=== PATIENT | male | born 1930 | race Caucasian/White ===

== ENCOUNTER 2016-12-17 09:59 | Emergency (ER) | payer MEDICARE, MEDICAID ==
[~2016-12-17] VITALS: Ht 177.8 cm; Wt 93.1 kg
[~2016-12-17 09:59] MED LIST: ASPI81TA2 PO; HYDR-2540 PO; INSU100I21 SQ; SILD50TA PO; VALS160T25 PO
[2016-12-17 10:02] VITALS: Ht 177.8 cm; Wt 93.1 kg
--- OUTSIDE RECORDS SUMMARY | 2016-12-17 10:04 | XMS REPORT | Summary of Care ---
Author Author Aydin Ly M.D. Organization Unknown Address [address] [place] [address] [place] [address] Phone Unavailable Care Team Providers Care Packer Denture Name Role Phone Aydin Ly M.D. 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 Hematuria, gross (599.71, R31.0) Status: Active Urinary tract infection (599.0, N39.0) Status: Active History of Congestion and hemorrhage of prostate (602.1, N42.1) Status: Resolved Medications Name Dates Details Lantus 100 UNIT/ML Subcutaneous Solution * Start 13-Jun-2015 Active Aspirin 81 MG TABS * Refills: 0 * Start 13-Jun-2015 Active Diovan 160 MG Oral Tablet * Refills: 0 * Start 13-Jun-2015 Active Tylenol PM Extra Strength 500-25 MG Oral Tablet * Refills: 0 * Start 13-Jun-2015 Active Viagra 100 MG Oral Tablet * Refills: 0 * Start 13-Jun-2015 Active Allergies and Adverse Reactions Name Dates Details Cozaar (Allergy) Status: Active erythromycin (Allergy) Status: Active HMG-CoA-R Inhibitors (Allergy) Status: Active Losartan Potassium TABS (Allergy) Status: Active Statins (Allergy) Status: Active Past Medical History Name Dates Details History of atrial flutter (V12.59, Z86.79) Status: Resolved History of Benign prostatic hyperplasia (600.00, N40.0) Status: Resolved History of Congestion and hemorrhage of prostate (602.1, N42.1) Status: Resolved History of diabetes mellitus (V12.29, Z86.39) Status: Resolved History of Erectile dysfunction (607.84, N52.9) Status: Resolved History of hematuria (V13.09, Z87.448) Status: Resolved History of hyperlipidemia (V12.29, Z86.39) Status: Resolved History of hypertension (V12.59, Z86.79) Status: Resolved History of pericarditis (V12.59, Z86.79) Status: Resolved 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, 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 Procedures Procedure Dates Details History of Transureth Resect Prostate (TURP) Complete, Incl Control Of Postop Bleeding History of Pacemaker Placement History of Colonoscopy URINE CULTURE [id number] Ordered: 21-Jun-2016 Immunization Name Dates Details Immunizations not documented Family History Name Dates Details Family history of diabetes mellitus (V18.0, Z83.3) Comments: Family History Status: Active Family history of hypertension (V17.49, Z82.49) Comments: Family History Status: Active Family history of myocardial infarction (V17.3, Z82.49) Comments: Family History Status: Active Name Dates Details Family history of Status: Active Family history of malignant neoplasm of prostate (V16.42, Z80.42) Status: Active Social History Name Dates Details - Status: Name Dates Details Never smoker Vital Signs Date Test Result Details 21-Jun-2016 09:16 BP Systolic 141 mm[Hg] Status: Comments: Location: ; Position: BP Diastolic 69 mm[Hg] Status: Comments: Location: ; Position: Heart Rate 77 /min Status: Comments: Location: ; Weight 200 lb Status: Body Mass Index Calculated 28.7 kg/m2 Status: Body Surface Area Calculated 2.09 m2 Status: Results Date Description Value Details Results not documented Plan of Care Name Dates Details Planned Observations Planned Goals not documented Planned Encounters Appointment; Provider: Aydin Ly M.D. On 19-Jul-2016 08:30 Interventions Provided Labs/Procedures/Imaging* URINE CULTURE [id number]; To be Done: 21 Jun 2016 Instructions Name Dates Details Instructions not documented Encounters Appointment; Aydin Ly M.D. Encounter Diagnosis: Problem not documented On 08-Nov-2015 13:30 Appointment; Aydin Ly M.D. Encounter Diagnosis: Problem not documented On 06-Oct-2015 09:00 Appointment; Aydin Ly M.D. Encounter Diagnosis: Problem not documented On 28-Jul-2015 08:30 Appointment; Aydin Ly M.D. Encounter Diagnosis: Problem not documented On 28-Jun-2015 09:30 Appointment; Aydin Ly M.D. Encounter Diagnosis: Problem not documented On 23-Jun-2015 13:30
--- OUTSIDE RECORDS SUMMARY | 2016-12-17 10:04 | XMS REPORT | Continuity of Care Document ---
Author Author [facility] Organization [facility] Address Unknown Phone Unavailable Support Name Relationship Address Phone ISHAN LEO MD Caregiver [address] [place] [address] [address] [place] [address] Unavailable ISHAN LEO MD Caregiver [address] [place] [address] [address] [place] [address] Unavailable REBEKAH RTUJILLO DO Caregiver [address] [facility] [address] Unavailable MAURISIO EVERETT MD Caregiver [address] [facility] [address] [place] [address] Unavailable TANISHA ROBERTS Next Of Kin [address] [phone] Insurance Providers Guarantor Terell Lopez Address [address] [place] [address] Email DENIED/NO TO PT [place] Payer Medicaid Policy Number [id number] Subscriber's Name Terell Lopez Relationship 18 Self Effective Date 15 Expiration Date 15 Payer Medicareadvantra Ppo Policy Number [id number] Subscriber's Name Terell Lopez Relationship 18 Self Group Number [id number] Advance Directives Directive Response Recorded Date/Time Advanced Directives Type None 12/11/15 9:30am Dr Riggins Resuscitation Status Do Not Resuscitate 12/11/15 8:07pm Resuscitation Documents on File Yes 12/11/15 12:55pm DPOA for Healthcare Only Yes 12/11/15 12:55pm Chief Complaint and Reason for Visit Chief Complaint CHEST PAIN Reason for Visit Hematuria History of atrial flutter History of pericarditis Hyperlipemia, mixed Hypertension UTI UTI Urinary bladder excision Status post biventricular cardiac pacemaker insertion Problems Active Problems Medical Problem Onset Date Status Acute urinary retention Unknown Acute BPH (benign prostatic hyperplasia) Unknown Acute Bradyarrhythmia Unknown Resolved Cardiac asystole Unknown Resolved Chest pain Unknown Acute Congestion or hemorrhage of prostate Unknown Acute Diabetes mellitus Unknown Chronic Hematuria Unknown Acute Hematuria Unknown Acute History of atrial flutter Unknown Resolved History of pericarditis Unknown Resolved Hyperlipemia, mixed Unknown Chronic Hypertension Unknown Chronic Recurrent and persistent hematuria Unknown Acute UTI Unknown Acute UTI Unknown Acute Urinary bladder excision Unknown Acute Surgical Problem Onset Date Status Status post biventricular cardiac pacemaker insertion Unknown Acute Medications Current Home Medications Medication Dose Units Route Directions Days Qty Instructions Start Date Aspirin 81 Mg Tab.chew 81 Mg Oral Daily 12/05/15 Hydrochlorothiazide 50 Mg Tablet 50 Mg Oral Daily 12/05/15 Hydrocodone/Acetaminophen (Sunshine 5-325 Tablet) 1 Each Tablet 1-2 Tab Oral Every 6 Hours as needed for Pain 7 Days 12/13/15 Insulin Detemir (Levemir Flextouch) 100 Unit/1 Ml Insuln.pen 10-15 Unit Sub- Q Bedtime 12/05/15 Minocycline Hcl (Minocin) 100 Mg Capsule 100 Mg Oral Twice A Day 14 Days 12/13/15 Valsartan 160 Mg Tablet 160 Mg Oral Daily 30 Days 12/13/15 Past Home Medications Medication Directions Ordered Status Hydrochlorothiazide 12.5 Mg Tablet, 10/08/10 Discontinued Valsartan (Diovan) 160 Mg Tablet, 160 Mg Oral Daily 03/13/11 Discontinued Valsartan (Diovan) 40 Mg Tablet, 10/08/10 Discontinued Social History Social History Problem Response Recorded Date/Time Onset Date Status Hx Substance Use No 12/11/2015 9:30am Not Applicable Not Applicable Hx Alcohol Use No 12/11/2015 9:30am Not Applicable Not Applicable Has the pt used tobacco in the last 12 months No 06/20/2015 6:32am Not Applicable Not Applicable Tobacco Usage none 12/11/2015 12:23pm Not Applicable Not Applicable Query Response Start Date Stop Date Smoking Status Never smoker Hospital Discharge Instructions Instructions: Care Instructions: Reason for Hospitalization: Chest pain, asystole, insertion PPM I was in the hospital because (patient own words): "I was feeling dizzy, queezy , was sweating and had chest pain" Discharge Diet: Resume regular diet Discharge Activity: NO lifting arm above the shoulder x 4 weeks, no driving x 4 weeks. Wear the sling at night x 4 weeks and during the day if you think you might forget not to lift arm up or use arm. Follow Up Appointments: FOLLOW UP WITH FOR INCISION CHECK Friday12/20/15 @ 2:[address] FOLLOW UP WITH DR. LEO FOR PACEMAKER CHECK [facility] 01/24/16 @ 10:10 Pending Lab / Results: No Pending Lab Wound/Incision Care: DO NOT RUB PACEMAKER INCISION SITE, KEEP CLEAN AND DRY. WHEN SHOWERING JUST LET THE WATER RUN ACROSS THE INCISION, THEN PAT DRY, THE STERISTRIPS WILL FALL OFF ON THEIR OWN. TAKE THE MINOCYCLIN FOR 7 DAYS. Notify Physician If: ANY SIGNS OR SYMPTOMS OF INFECTION AT THE PACEMAKER SITE: REDNESS SWELLING, DRAINAGE OR INCREASED PAIN. Condition at time of discharge: Good Plan of Care Discharge Date 12/13/15 11:20am Disposition 01 DISCHARGED HOME, SELF-CARE Instructions/Education Provided [facility]iran Pacemaker Implantation Prescriptions See Medication Section Care Plan and Goals See Discharge Instructions Section Functional Status Query Response Date Recorded Mobility Status Ambulatory December 13, 2015 10:47am Assistive Devices None December 13, 2015 10:47am Activity Limitations Fatigue Dizziness December 13, 2015 10:47am Feeding Ability Independent December 13, 2015 10:47am Toileting Ability Independent December 13, 2015 10:47am Grooming Ability Independent December 13, 2015 10:47am Dressing Ability Independent December 13, 2015 10:47am Driving Ability Independent December 13, 2015 10:47am Housework Ability Independent December 13, 2015 10:47am Meal Preparation Ability Independent December 13, 2015 10:47am Stair Climbing Ability Independent December 13, 2015 10:47am Ability to complete ADL's impeded by No change December 13, 2015 10:47am Cognitive/Perceptual Impairments Impaired hearing December 13, 2015 10:47am Allergies, Adverse Reactions, Alerts Allergen Type Severity Reaction Status Last Updated losartan potassium Allergy Unknown ARTHRALGIA, WEAKNESS, FATIGUE Active Sqtrfxr-Xrm-Ilv Reductase Inhibitor Allergy Unknown SEVERE MYALGIA Active 12/11/15 Erythromycin base Allergy Unknown N/V Active 12/11/15 Metoprolol Allergy Severe life threatening Active 12/11/15 Tamsulosin Adverse Reaction Unknown SYNCOPE Active 12/11/15 Immunizations Query Response on File Recorded Date/Time Hx Influenza Vaccination Y 06/0112/11/15 1:08pm Hx Pneumococcal Vaccination Yes 12/11/15 1:08pm Hx Influenza Vaccination Y 06/0112/11/15 1:08pm Influenza Vaccine Hx Fall 201412/12/15 11:45am Vital Signs Acute Vital Signs Vital Response Date/Time Temperature (Fahrenheit) 98.4 deg F (96.8 - 99.1) 12/13/2015 8:00am Temperature (Calculated Celsius) 36.98181 degrees C (36.0 - 37.3) 12/13/2015 8:00am Temperature Source Oral 12/06/2015 8:01am Pulse Rate (adult) 75 bpm (60 - 100) 12/13/2015 10:00am Respiratory Rate 23 breaths/min (10 - 20) 12/13/2015 10:00am O2 Sat by Pulse Oximetry 95 % (90 - 100) 12/13/2015 10:00am Oxygen Delivery Method Nasal Cannula 12/11/2015 7:39pm Oxygen Delivery Method Room Air 12/13/2015 8:00am Oxygen Flow Rate 2.00 L/min 12/12/2015 2:08pm Blood Pressure 107/54 mm Hg 12/13/2015 10:00am Blood Pressure Source Automatic Cuff 12/13/2015 8:00am Height (Feet) 5 feet 12/13/2015 10:28am Height (Inches) 11.00 inches 12/13/2015 10:28am Weight (Kilograms) 87.200 kg 12/12/2015 11:54am Body Mass Index (BMI) 27.2 12/11/2015 12:54pm Results Laboratory Results Test Name Result Units Flags Reference Collection Date/Time Result Date/ Time Comments Urine Collection Type VOIDED-NOT CC-MIDSTR 12/05/2015 1:27pm 2015 1:59pm Urine Color RED YELLOW 12/05/2015 1:pm 12/05/2015 1:59pm Urine Turbidity BLOODY CLEAR 12/05/2015 1:27pm 12/05/2015 1:59pm Urine Specific [place] 1.020 1.015-1.025 12/05/2015 1:pm 2015 1:59pm Urine pH 8.0 5.0-8.0 12/05/2015 1:pm 12/05/2015 1:59pm Urine Leukocyte Esterase NEGATIVE NEGATIVE 12/05/2015 1:pm 2015 1:59pm Urine Nitrite POSITIVE A NEGATIVE 12/05/2015 1:pm 12/05/2015 1:59pm Urine Protein 3+ A NEGATIVE 12/05/2015 1:27pm 12/05/2015 1:59pm Urine Glucose (UA) TRACE A NEGATIVE 12/05/2015 1:pm 12/05/2015 1: 59pm Urine Ketones NEGATIVE NEGATIVE 12/05/2015 1:27pm 12/05/2015 1:59pm Urine Urobilinogen 0.2 EU/DL NORMAL 12/05/2015 1:27pm 12/05/2015 1: 59pm Urine Bilirubin NEGATIVE NEGATIVE 12/05/2015 1:pm 12/05/2015 1: 59pm Urine Blood 3+ A NEGATIVE 12/05/2015 1:pm 12/05/2015 1:59pm Urine WBC NONE SEEN /HPF 0-5 12/05/2015 1:pm 12/05/2015 2:00pm Urine RBC TNTC /HPF 0-3 12/05/2015 1:pm 12/05/2015 2:00pm Urine Squamous Epithelial Cells NONE SEEN 12/05/2015 1:pm 2015 2:00pm Urine Bacteria 2+ H NEGATIVE 12/05/2015 1:pm 12/05/2015 2:00pm Urine Culture Indicated CULT REFLEXED &SETUP 12/05/2015 1:pm 2:00pm White Blood Count 10.2 T/MM3 4.5-11.0 12/13/2015 4:57am 12/13/2015 5: 28am Red Blood Count 5.07 M/MM3 4.50-5.90 12/13/2015 4:57am 12/13/2015 5: 28am Hemoglobin 14.8 GM/DL 13.5-17.5 12/13/2015 4:57am 12/13/2015 5:28am Hematocrit 44.1 % 41-53 12/13/2015 4:57am 12/13/2015 5:28am Mean Corpuscular Volume 87.0 UM3 80-100 12/13/2015 4:57am 12/13/2015 5: 28am Mean Corpuscular Hemoglobin 29.2 UUG 26-34 12/13/2015 4:57am 2015 5:28am Mean Corpuscular Hemoglobin Concent 33.6 GM/DL 31-37 12/13/2015 4:57am 12/13/2015 5:28am RDW Standard Deviation 42.2 FL 36.9-50.2 12/13/2015 4:57am 12/13/2015 5 :28am Platelet Count 223 T/MM3 130-400 12/13/2015 4:57am 12/13/2015 5:28am Mean Platelet Volume 10.6 UM3 9.4-12.4 12/13/2015 4:57am 12/13/2015 5: 28am Neutrophils (%) (Auto) 83.1 % H 33-66 12/11/2015 10:0912/11/2015 10: 17am Lymphocytes (%) (Auto) 9.4 % L 23-45 12/11/2015 10:12/11/2015 10: 17am Monocytes (%) (Auto) 6.1 % 0-9.0 12/11/2015 10:0912/11/2015 10:17am Eosinophils (%) (Auto) 0.7 % 0-4 12/11/2015 10:12/11/2015 10:17am Basophils (%) (Auto) 0.5 % 0-2 12/11/2015 10:12/11/2015 10:17am Immature Granulocyte % (Auto) 0.2 % 0.0-0.5 12/11/2015 10:2015 10:17am Absolute Neutrophils (auto) 8.1 T/MM3 H 1.8-7.7 12/11/2015 10:12/10 10:17am Absolute Lymphocytes (auto) 0.9 T/MM3 L 1-4.8 12/11/2015 10:2015 10:17am Absolute Monocytes (auto) 0.6 T/MM3 0-0.8 12/11/2015 10:2015 10:17am Absolute Eosinophils (auto) 0.1 T/MM3 0-0.5 12/11/2015 10:2015 10:17am Absolute Basophils (auto) 0.1 T/MM3 0-0.2 12/11/2015 10:2015 10:17am Absolute Immature Granulocyte (auto 0.02 T/MM3 0.00-0.03 12/11/2015 10: 12/11/2015 10:17am Prothromb Time International Ratio 0.99 0.81-1.09 12/11/2015 10:12/11/2015 10:23am THERAPUTIC RANGE=2.00-3.00 FOR ANTI-THROMBOSIS THERAPUTIC RANGE=2.50-3.50 FOR IMPLANTED VALVE Activated Partial Thromboplast Time 29.4 SEC 24-36 12/11/2015 10:09am 12/11/2015 10:23am Icterus Index < 2 0-7 12/13/2015 4:57am 12/13/2015 5:54am Chemistry Specimen Hemolysis < 15 0-25 12/13/2015 4:57am 12/13/2015 5 :55am 0-25: Specimen Exhibited No Hemolysis. Turbidity < 20 0-20 12/13/2015 4:57am 12/13/2015 5:54am Sodium Level 140 MEQ/L 134-144 12/13/2015 4:57am 12/13/2015 5:54am Potassium Level 3.7 MEQ/L 3.6-5 12/13/2015 4:57am 12/13/2015 5:54am Chloride Level 100 MEQ/L 98-107 12/13/2015 4:57am 12/13/2015 5:54am Carbon Dioxide Level 32 MEQ/L H 22-30 12/13/2015 4:57am 12/13/2015 5: 54am Anion Gap 8 MEQ/L 5-15 12/13/2015 4:57am 12/13/2015 5:54am Blood Urea Nitrogen 21.0 MG/DL H 9-20 12/13/2015 4:57am 12/13/2015 5: 54am Creatinine 1.0 MG/DL 0.8-1.5 12/13/2015 4:57am 12/13/2015 5:54am BUN/Creatinine Ratio 21 RATIO 6-26 12/13/2015 4:57am 12/13/2015 5:54am Glomerular Filtration Rate Calc 72 12/13/2015 4:57am 12/13/2015 5: 54am Glucose Level 106 MG/DL 75-110 12/13/2015 4:57am 12/13/2015 5:54am Calculated Osmolality 272 MOSM/KG 261-280 12/13/2015 4:57am 12/13/2015 5:54am Calcium Level 9.3 MG/DL 8.4-10.2 12/13/2015 4:57am 12/13/2015 5:54am Total Bilirubin 0.60 MG/DL 0.20-1.30 12/11/2015 10:0912/11/2015 10: 26am Alkaline Phosphatase 62 U/L 38-126 12/11/2015 10:0912/11/2015 10: 26am Total Protein 6.8 G/DL 6.3-8.2 12/11/2015 10:09am 12/11/2015 10:26am Albumin 4.1 G/DL 3.5-5.0 12/11/2015 10:0912/11/2015 10:26am Globulin 2.7 G/DL 2.4-3.6 12/11/2015 10:09am 12/11/2015 10:26am Albumin/Globulin Ratio 1.5 RATIO 1.1-2.2 12/11/2015 10:0912/11/2015 10:26am Aspartate Amino Transf (AST/SGOT) 30 U/L 17-59 12/11/2015 10:09am 12/10 10:26am Alanine Aminotransferase (ALT/SGPT) 27 U/L 21-72 12/11/2015 10:09am 10:26am Cholesterol Level 209 MG/DL H 132-199 12/12/2015 4:52am 12/12/2015 5: 30am Triglycerides Level 162 MG/DL H 40-160 12/12/2015 4:52am 12/12/2015 5: 30am HDL Cholesterol Direct 50 MG/DL 40-60 12/12/2015 4:52am 12/12/2015 5: 30am LDL Cholesterol, Calculated 126.6 66-159 12/12/2015 4:52am 2015 5:30am VLDL Cholesterol 32.4 MG/DL H 0-28 12/12/2015 4:52am 12/12/2015 5:30am Cholesterol/HDL Ratio 4.2 RATIO 0-5.0 12/12/2015 4:52am 12/12/2015 5: 30am Troponin I 0.031 ng/ml D 0-0.12 12/13/2015 4:57am 12/13/2015 5:56am Troponin values with a difference of 55% increase from orginal troponin value represent a true biological DELTA value. (%increase Calc=Orginal Troponin value, divided by subsequent Troponin value, multiplied by 100) Magnesium Level 2.1 MG/DL 1.6-2.3 12/13/2015 4:57am 12/13/2015 5:54am Thyroid Stimulating Hormone (TSH) 4.20 MIU/L 0.47-4.68 12/11/2015 10: 22am 12/11/2015 3:55pm Glucometer 105 mg/dL 75-110 12/13/2015 6:03am 12/13/2015 6:06am Microbiology Results Procedure Source Organism/Result Collection Date/Time Result Date/Time Result Status Urine Culture Urine, Voided-Not Cc-Midstream GRAM NEGATIVE PRESTON 12/05/2015 2 :00pm 12/07/2015 9:20am Final GRAM POSITIVE ORGANISM 12/05/2015 2:00pm 12/07/2015 9:20am Final Name: TERELL LOPEZ Unit #: [id number] : 1930 Sex: M DISCHARGE SUMMARY Admit Date: 12/12/15 Report #: [id number] [facility] MARK DE LA CRUZ APRN 12/13/15 1026: General Date Date DATE: 12/13/15 TIME: 10:20 Attending Physician Ishan Leo MD Admitting Physician Ishan Leo MD Consulting Physician Admitting Diagnosis 1. Chest Pain Discharge Diagnosis Bradyarrhythmia, asystole, S/P PPM insertion Laboratory Laboratory Tests Test 12/12/15 20:27 12/12/15 23:12 12/13/15 04:57 12/13/15 06:03 Glucometer 107mg/dL 115mg/dL 105mg/dL White Blood Count 10.2T/MM3 Red Blood Count 5.07M/MM3 Hemoglobin 14.8GM/DL Hematocrit 44.1% Mean Corpuscular Volume 87.0UM3 Mean Corpuscular Hemoglobin 29.2UUG Mean Corpuscular Hemoglobin Concent 33.6GM/DL RDW Standard Deviation 42.2FL Platelet Count 223T/MM3 Mean Platelet Volume 10.6UM3 Turbidity < 20 Sodium Level 140MEQ/L Potassium Level 3.7MEQ/L Chloride Level 100MEQ/L Carbon Dioxide Level 32MEQ/L Anion Gap 8MEQ/L Blood Urea Nitrogen 21.0MG/DL Creatinine 1.0MG/DL Glomerular Filtration Rate Calc 72 BUN/Creatinine Ratio 21RATIO Glucose Level 106MG/DL Calculated Osmolality 272MOSM/KG Calcium Level 9.3MG/DL Magnesium Level 2.1MG/DL Icterus Index < 2 Troponin I 0.031ng/ml Chemistry Specimen Hemolysis < 15 Radiology 12/13/15 Chest xray PA and Lateral No pneumothorax, pacemaker leads in place History of Present Illness Terell Lopez is an 84 y/o male who presented to the ED via EMS c/o chest pain and pressure, and epigastric discomfort, dizziness and SOA and a feeling like he was about to pass out that started this morning as he was starting his day, making coffee. Patient reports hw has a hx of pericarditis years ago that started with similiar sx but the sx he experienced today were worse. Patient is known to our service, he was last seen in the office in 12/2009 after full cardiac evaluation with MPI, Echo, LEAD, clinic records are reviewed and obtained to place in chart. Past cardiac significant hx included atrial flutter, hyperlipidemia, HTN, Also hx of DM, acute renal failure, enlarged pericardia, pericarditis as mentioned in the distant past. Patient is examined in ED room #2, he is alert,oriented x3, he is a good historian, his is at the bedside. in no distress, denies chest pain or pressure, denies diaphoresis or dizziness. Labs are reviewed, CBC, CMP results are all normal, magnesium is 2.0, TSH is pending. EKG is SR with no significant ST changes. Patient has significant risk factors for CAD: diabetes, hyperlipidemia HTN, age. Will admit for OBS overnight, will monitor continuous telemetry, serial EKGs and troponin levels. Echocardiogram ordered to further assess for pericardial effusion due to hx. Plan discussed with patient who is agreeable to this course of action. Objective Vital Signs Vital signs Vital Signs 12/12/15 12/13/15 12/13/15 12/13/15 23:00 00:00 00:00 01:00 Temp 97.6 Pulse 60 59 59 80 Resp 12 10 31 B/P 110/54 124/60 Pulse Ox 96 94 O2 Delivery Room Air Room Air Room Air 12/13/15 12/13/15 12/13/15 12/13/15 01:05 02:00 04:00 04:02 Temp 97.9 Pulse 60 60 60 60 Resp 13 11 13 B/P 139/62 127/57 Pulse Ox 97 93 93 O2 Delivery Room Air Room Air Room Air 12/13/15 12/13/15 12/13/15 05:00 08:00 08:00 Temp 98.4 Pulse 59 61 60 Resp 20 22 B/P 130/58 121/58 Pulse Ox 99 98 O2 Delivery Room Air Room Air Height (Feet): 5 Height (Inches): 11.00 Weight (Kilograms): 87.200 Cardiovascular (Brief) regular rate, regular rhythm, NOT FOUND: carotid bruits, click, gallop, murmur, pedal edema, peripheral edema, rub Laboratory Laboratory Laboratory Tests 12/13/15 04:57 [Embedded Image Not Available] Laboratory Tests 12/13/15 04:57 [Embedded Image Not Available] Hospital Course Terell Lopez is an 84 y/o male who presented to the ED via EMS 12/11/15 c/o chest pain and pressure, and epigastric discomfort, dizziness and SOA and a feeling like he was about to pass out that started this morning as he was starting his day, making coffee. Patient reports hw has a hx of pericarditis years ago that started with similiar sx but the sx he experienced today were worse. Patient is known to our service, he was last seen in the office in 12/17 after full cardiac evaluation with MPI, Echo, LEAD, clinic records are reviewed and obtained to place in chart. Past cardiac significant hx included atrial flutter, hyperlipidemia, HTN, Also hx of DM, acute renal failure, enlarged pericardia, pericarditis as mentioned in the distant past. Patient is examined in ED room #2, he is alert,oriented x3, he is a good historian, his is at the bedside. in no distress, denies chest pain or pressure, denies diaphoresis or dizziness. Labs are reviewed, CBC, CMP results are all normal, magnesium is 2.0, TSH is pending. EKG is SR with no significant ST changes. Patient has significant risk factors for CAD: diabetes, hyperlipidemia HTN, age. Will admit for OBS overnight, will monitor continuous telemetry, serial EKGs and troponin levels. Echocardiogram ordered to further assess for pericardial effusion due to hx. Plan discussed with patient who is agreeable to this course of action. 12/12/15 Received call from nursing in the early am reporting patient had 2 episodes of asystole, 20 seconds, 30 seconds, ordered external pacing if patient is agreeable, morphine for discomfort if pacing is necessary, call Dr. Leo if pacing necessary. Patient had more episodes of asystole with external pacing difficulty in capturing, Dr Leo was notified. patient recieved a pacemaker early this am. 12/13/15 S/P PPM insertion Patient ambulated in halls of ICU without difficultyl. PPM insertion incision intact with steristrips C&D. no redness, swelling or drainage Education regarding PPM post care explained, wear sling x 4 weeks at night, during the day if patient thinks he may forget not to raise arm above his shoulder. rationale explained. EKG and telemetry reveal artificial atrial paced rhythm. Patient to be discharge to home with return office visits scheduled as noted in dismissal instructions. After examining the patient I agree with the above assessment. I am involved in the formulation of the patient's plan of care. Pain appears noncardiac. Problems: (1) Cardiac asystole Status: Resolved Assessment & Plan: Received call from nursing in the early am reporting patient had 2 episodes of asystole, 20 seconds, 30 seconds, ordered external pacing if patient is agreeable, morphine for discomfort if pacing is necessary, call Dr. Leo if pacing necessary. Patient had more episodes of asystole with external pacing difficulty in capturing, Dr Leo was notified. patient recieved a pacemaker early this am. (2) Bradyarrhythmia Status: Resolved (3) Chest pain Status: Acute Assessment & Plan: Patient has significant risk factors for CAD: diabetes, hyperlipidemia HTN, age. Will admit for OBS overnight, will monitor continuous telemetry, serial EKGs and troponin levels. Echocardiogram ordered to further assess for pericardial effusion due to hx. Plan discussed with patient who is agreeable to this course of action. (4) Hypertension Status: Chronic Assessment & Plan: Will observe, follow serial troponins and EKGs, consider HC if indicated,however patient states he will not have a heart catheter done. Lovenox for anticoagulation. (5) Hyperlipemia, mixed Status: Chronic (6) History of atrial flutter Status: Resolved (7) History of pericarditis Status: Resolved (8) Diabetes mellitus Status: Chronic Code Status Do Not Resuscitate Home Meds Active Scripts Hydrocodone/Acetaminophen (Sunshine 5-325 Tablet)1 Each Tablet1-2 Tab PO Q6H PRN PAIN 7 Days Prov:MILINDMARK SARAVIA TITLE EXAMINER 12/13/15 Valsartan 160 Mg [id number] Mg PO DAILY 30 Days Prov:MARK DE LA CRUZ TITLE EXAMINER 12/13/15 Minocycline HCl (Minocin)100 Mg [id number] Mg PO BID 14 Days Prov:MARK DE LA CRUZ TITLE EXAMINER 12/13/15 Reported Medications Insulin Detemir (Levemir Flextouch)100 Unit/1 Ml Insuln.ced56-43 Unit SQ HS 12/05/15 Aspirin 81 Mg Tab.chew81 Mg PO DAILY 12/05/15 Hydrochlorothiazide 50 Mg Rstefu82 Mg PO DAILY 12/05/15 Discharge Disposition good Copies To 1: ISHAN LEO MD Copies To 2: MAURISIO EVERETT MD, HOSSEIN MD 12/13/15 1528: Hospital Course After examining the patient I agree with the above assessment. I am involved in the formulation of the patient's plan of care. Pain appears noncardiac. Problems: Home Meds Active Scripts Hydrocodone/Acetaminophen (Sunshine 5-325 Tablet)1 Each Tablet1-2 Tab PO Q6H PRN PAIN 7 Days Prov:DOROTHYMARK TITLE EXAMINER 12/13/15 Valsartan 160 Mg Ywlakt624 Mg PO DAILY 30 Days Prov:MILINDMARK SARAVIA Davy TITLE EXAMINER 12/13/15 Minocycline HCl (Minocin)100 Mg Qbtulnh834 Mg PO BID 14 Days Prov:MILINDMARK SARAVIA TITLE EXAMINER 12/13/15 Reported Medications Insulin Detemir (Levemir Flextouch)100 Unit/1 Ml Insuln.mgf11-83 Unit SQ HS 12/05/15 Aspirin 81 Mg Tab.chew81 Mg PO DAILY 12/05/15 Hydrochlorothiazide 50 Mg Sbrviq79 Mg PO DAILY 12/05/15 Copies To 1: ISHAN LEO MD Copies To 2: MAURISIO EVERETT MD, CARMEN G APRN Dec 13, 2015 10:26 ISHAN LEO MD Dec 13, 2015 15:28 Procedures Procedure Status Date Provider(s) CYSTOSCOPY REMOVAL OF CLOTS Completed 12/05/15 RAYSA DONALDSON MD METABOLIC PANEL TOTAL CA Completed 12/05/15 URINALYSIS AUTO W/SCOPE Completed 12/05/15 REAGENT STRIP/BLOOD GLUCOSE Completed 12/05/15 REAGENT STRIP/BLOOD GLUCOSE Completed 12/05/15 REAGENT STRIP/BLOOD GLUCOSE Completed 12/05/15 COMPLETE CBC W/AUTO DIFF WBC Completed 12/05/15 PROTHROMBIN TIME Completed 12/05/15 URINE CULTURE/COLONY COUNT Completed 12/05/15 EMERGENCY DEPT VISIT Completed 12/05/15 [id number] ITEM OR SERVICE Completed 12/05/15 [id number] ITEM OR SERVICE Completed 12/05/15 [id number] ITEM OR SERVICE Completed 12/05/15 [id number] ITEM OR SERVICE Completed 12/05/15 [id number] ITEM OR SERVICE Completed 12/05/15 [id number] ITEM OR SERVICE Completed 12/05/15 [id number]"INJECTION, INSULIN, PER 5 UNITS" Completed 12/05/15 [id number]"INJECTION, LEVOFLOXACIN, 250 MG" Completed 12/05/15 [id number]"INFUSION, NORMAL SALINE SOLUTION , 1000 CC" Completed 12/05/15 [id number]% DEXTROSE/WATER (500 ML=1 UNIT) Completed 12/05/15 [id number]"RINGERS LACTATE INFUSION, UP TO 1000 CC" Completed 12/05/15 [id number]"RINGERS LACTATE INFUSION, UP TO 1000 CC" Completed 12/05/15 Encounters Encounter Location Arrival/Admit Date Discharge/Depart Date Attending Provider Discharged Inpatient [facility] 12/12/15 12:55pm 12/13/15 11: 20am IHSAN LEO MD Departed [facility] 12/05/15 4:03pm 12/06/15 11 :05am RAYSA DONALDSON MD Recent Diagnosis Hematuria History of atrial flutter History of pericarditis Hyperlipemia, mixed Hypertension UTI UTI Urinary bladder excision
--- OUTSIDE RECORDS SUMMARY | 2016-12-17 10:05 | XMS REPORT | Continuity of Care Document ---
Author Author [facility] Organization [facility] Address Unknown Phone Unavailable Support Name Relationship Address Phone POWER LEO MD Caregiver [address] [place] [address] [address] [place] [address] Unavailable POWER LEO MD Caregiver [address] [facility] [address] [place] [address] Unavailable MAURISIO EVERETT MD Caregiver [address] [facility] [address] [place] [address] Unavailable RAHEEM DORADO MD Caregiver [address] [facility] [place] [address] Unavailable TAMIKA ROBERTS Next Of Kin [address] [place] [id number] Insurance Providers Guarantor Terell Lopez Address [address] [place] [address] Email DENIED/NO TO PT [place] Payer Medicaid Policy Number [id number] Subscriber's Name Terell Lopez Relationship 18 Self Effective Date 16 Expiration Date 16 Payer Medicare[employer]ra Ppo Policy Number [id number] Subscriber's Name Terell Lopez Relationship 18 Self Group Number [id number] Advance Directives Directive Response Recorded Date/Time Ordered Resuscitation Status Full Code, unverified 03/07/16 5:10am Resuscitation Documents on File Yes 03/07/16 5:57am DPOA for Healthcare Only Y Tamika, daughter 03/07/16 5:57am Living Will Yes 03/07/16 5:57am Advanced Directive or Resuscitation Comments Pt wishes to be a DNR. 03/07/16 5:57am Problems Active Problems Medical Problem Onset Date Status Acute urinary retention Unknown Acute BPH (benign prostatic hyperplasia) Unknown Acute Bradyarrhythmia Unknown Resolved Cardiac asystole Unknown Resolved Congestion or hemorrhage of prostate Unknown Acute Diabetes mellitus Unknown Chronic Hematuria Unknown Acute Hematuria Unknown Acute History of atrial flutter Unknown Resolved History of pericarditis Unknown Resolved Hyperlipemia, mixed Unknown Chronic Hypertension Unknown Chronic Precordial chest pain Unknown Acute Recurrent and persistent hematuria Unknown Acute UTI Unknown Acute UTI Unknown Acute Urinary bladder excision Unknown Acute Surgical Problem Onset Date Status Status post biventricular cardiac pacemaker insertion Unknown Acute Past Problems Medical Problem Onset Date Chest pain Unknown LLQ abdominal pain Unknown Medications Current Home Medications Medication Dose Units Route Directions Days Qty Instructions Start Date Aspirin 81 Mg Tab.chew 81 Mg Oral Daily 12/05/15 Hydrochlorothiazide 50 Mg Tablet 50 Mg Oral Daily 12/05/15 Insulin Detemir (Levemir Flextouch) 100 Unit/1 Ml Insuln.pen 10-15 Unit Sub- Q Bedtime 12/05/15 Sildenafil Citrate (Viagra) 50 Mg Tablet Unknown Dose Oral As Needed 6 Tablet 03/07/16 Valsartan 160 Mg Tablet 160 Mg Oral Daily 30 Days 12/13/15 Past Home Medications Medication Directions Ordered Status Hydrochlorothiazide 12.5 Mg Tablet, 10/08/10 Discontinued Hydrocodone/Acetaminophen (Warren 5-325 Tablet) 1 Each Tablet, 1-2 Tab Oral Every 6 Hours as needed for Pain 12/13/15 Discontinued Minocycline Hcl (Minocin) 100 Mg Capsule, 100 Mg Oral Twice A Day 12/13/15 Discontinued Valsartan (Diovan) 160 Mg Tablet, 160 Mg Oral Daily 03/13/11 Discontinued Valsartan (Diovan) 40 Mg Tablet, 10/08/10 Discontinued Social History Social History Problem Response Recorded Date/Time Onset Date Status Hx Substance Use No 03/07/2016 4:08am Not Applicable Not Applicable Hx Alcohol Use No 03/07/2016 4:08am Not Applicable Not Applicable Has the pt used tobacco in the last 12 months No 03/07/2016 6:04am Not Applicable Not Applicable Tobacco Usage none 03/07/2016 11:43am Not Applicable Not Applicable Query Response Start Date Stop Date Smoking Status Never smoker Hospital Discharge Instructions Instructions: Care Instructions: Reason for Hospitalization: chest pain I was in the hospital because (patient own words): Quesy stomach and pains in my abdomen with pressure in my chest. Discharge Diet: resume heart healthy diet Discharge Activity: may resume normal activity as tolerated Follow Up Appointments: Your Stress test is scheduled on April 03, 2016 at 8am. Follow up with Dr. Leo on April 10, 2016 at 11am Pending Lab / Results: No Pending Lab Condition at time of discharge: Good Plan of Care Discharge Date 03/07/16 3:07pm Disposition 01 DISCHARGED HOME, SELF-CARE Instructions/Education Provided DI for Chest Pain Prescriptions See Medication Section Care Plan and Goals See Discharge Instructions Section Functional Status Query Response Date Recorded Mobility Status Ambulatory March 07, 2016 7:20am Assistive Devices None March 07, 2016 7:20am Activity Limitations None March 07, 2016 7:20am Feeding Ability Independent March 07, 2016 7:20am Toileting Ability Independent March 07, 2016 7:20am Grooming Ability Independent March 07, 2016 7:20am Dressing Ability Independent March 07, 2016 7:20am Driving Ability Independent March 07, 2016 7:20am Housework Ability Independent March 07, 2016 7:20am Meal Preparation Ability Independent March 07, 2016 7:20am Stair Climbing Ability Independent March 07, 2016 7:20am Ability to complete ADL's impeded by No change March 07, 2016 7:20am Preferred Method of Learning Listening Hands on March 07, 2016 7:20am Allergies, Adverse Reactions, Alerts Allergen Type Severity Reaction Status Last Updated losartan potassium Allergy Unknown ARTHRALGIA, WEAKNESS, FATIGUE Active Xiqowwg-Nyo-Ygx Reductase Inhibitor Allergy Unknown SEVERE MYALGIA Active 03/07/16 Erythromycin base Allergy Unknown N/V Active 03/07/16 Metoprolol Allergy Severe life threatening Active 03/07/16 Tamsulosin Adverse Reaction Unknown SYNCOPE Active 03/07/16 Immunizations Query Response on File Recorded Date/Time Hx Influenza Vaccination Y May 2015 03/07/16 6:04am Hx Pneumococcal Vaccination No 03/07/16 6:04am Hx Influenza Vaccination Y May 2015 03/07/16 6:04am Influenza Vaccine Hx fall 201403/07/16 6:07am Vital Signs Acute Vital Signs Vital Response Date/Time Temperature (Fahrenheit) 97.8 deg F (96.8 - 99.1) 03/07/2016 12:11pm Temperature (Calculated Celsius) 36.83195 degrees C (36.0 - 37.3) 03/07/2016 12:11pm Pulse Rate (adult) 60 bpm (60 - 100) 03/07/2016 12:11pm Respiratory Rate 18 breaths/min (10 - 20) 03/07/2016 12:11pm O2 Sat by Pulse Oximetry 97 % (90 - 100) 03/07/2016 12:11pm Oxygen Delivery Method Nasal Cannula 12/11/2015 7:39pm Oxygen Delivery Method Room Air 03/07/2016 12:11pm Oxygen Flow Rate 1.00 L/min 03/07/2016 8:01am Blood Pressure 148/67 mm Hg 03/07/2016 12:11pm Blood Pressure Source Automatic Cuff 03/07/2016 12:11pm Height (Feet) 5 feet 03/07/2016 11:43am Height (Inches) 11.00 inches 03/07/2016 11:43am Weight (Kilograms) 92.200 kg 03/07/2016 8:00am Body Mass Index (BMI) 28.4 03/07/2016 5:55am Results Laboratory Results Test Name Result Units Flags Reference Collection Date/Time Result Date/ Time Comments Activated Partial Thromboplast Time 29.4 SEC 24-36 12/11/2015 10:09am 12/11/2015 10:23am Cholesterol Level 209 MG/DL H 132-199 12/12/2015 4:52am 12/12/2015 5: 30am Triglycerides Level 162 MG/DL H 40-160 12/12/2015 4:52am 12/12/2015 5: 30am HDL Cholesterol Direct 50 MG/DL 40-60 12/12/2015 4:52am 12/12/2015 5: 30am LDL Cholesterol, Calculated 126.6 66-159 12/12/2015 4:52am 2015 5:30am VLDL Cholesterol 32.4 MG/DL H 0-28 12/12/2015 4:52am 12/12/2015 5:30am Cholesterol/HDL Ratio 4.2 RATIO 0-5.0 12/12/2015 4:52am 12/12/2015 5: 30am White Blood Count 8.0 T/MM3 4.5-11.0 03/07/2016 4:1503/07/2016 4: 24am Red Blood Count 5.62 M/MM3 4.50-5.90 03/07/2016 4:1503/07/2016 4: 24am Hemoglobin 16.3 GM/DL 13.5-17.5 03/07/2016 4:1503/07/2016 4:24am Hematocrit 48.2 % 41-53 03/07/2016 4:1503/07/2016 4:24am Mean Corpuscular Volume 85.8 UM3 80-100 03/07/2016 4:03/07/2016 4: 24am Mean Corpuscular Hemoglobin 29.0 UUG 26-34 03/07/2016 4:2015 4:24am Mean Corpuscular Hemoglobin Concent 33.8 GM/DL 31-37 03/07/2016 4:03/07/2016 4:24am RDW Standard Deviation 40.8 FL 36.9-50.2 03/07/2016 4:03/07/2016 4 :24am Platelet Count 189 T/MM3 130-400 03/07/2016 4:03/07/2016 4:24am Mean Platelet Volume 10.6 UM3 9.4-12.4 03/07/2016 4:03/07/2016 4: 24am Neutrophils (%) (Auto) 58.2 % 33-66 03/07/2016 4:03/07/2016 4: 24am Lymphocytes (%) (Auto) 28.4 % 23-45 03/07/2016 4:03/07/2016 4: 24am Monocytes (%) (Auto) 11.4 % H 0-9.0 03/07/2016 4:03/07/2016 4:24am Eosinophils (%) (Auto) 1.3 % 0-4 03/07/2016 4:03/07/2016 4:24am Basophils (%) (Auto) 0.6 % 0-2 03/07/2016 4:03/07/2016 4:24am Immature Granulocyte % (Auto) 0.1 % 0.0-0.5 03/07/2016 4:2015 4:24am Absolute Neutrophils (auto) 4.6 T/MM3 1.8-7.7 03/07/2016 4:2015 4:24am Absolute Lymphocytes (auto) 2.3 T/MM3 1-4.8 03/07/2016 4:2015 4:24am Absolute Monocytes (auto) 0.9 T/MM3 H 0-0.8 03/07/2016 4:2015 4:24am Absolute Eosinophils (auto) 0.1 T/MM3 0-0.5 03/07/2016 4:2015 4:24am Absolute Basophils (auto) 0.1 T/MM3 0-0.2 03/07/2016 4:1503/07/2016 4:24am Absolute Immature Granulocyte (auto 0.01 T/MM3 0.00-0.03 03/07/2016 4: 03/07/2016 4:24am Prothromb Time International Ratio 0.92 L 0.99-1.21 03/07/2016 4:03/07/2016 4:29am THERAPUTIC RANGE=2.00-3.00 FOR ANTI-THROMBOSIS THERAPUTIC RANGE=2.50-3.50 FOR IMPLANTED VALVE Icterus Index < 2 0-7 03/07/2016 4:1503/07/2016 4:34am Chemistry Specimen Hemolysis < 15 0-25 03/07/2016 9:48am 03/07/2016 10:14am 0-25: Specimen Exhibited No Hemolysis. Turbidity < 20 0-20 03/07/2016 4:03/07/2016 4:34am Sodium Level 142 MEQ/L 134-144 03/07/2016 4:03/07/2016 4:40am Potassium Level 3.4 MEQ/L L 3.6-5 03/07/2016 4:03/07/2016 4:40am Chloride Level 101 MEQ/L 98-107 03/07/2016 4:03/07/2016 4:40am Carbon Dioxide Level 26 MEQ/L 22-30 03/07/2016 4:03/07/2016 4: 40am Anion Gap 15 MEQ/L 5-03/07/2016 4:03/07/2016 4:40am Blood Urea Nitrogen 28.0 MG/DL H 9-03/07/2016 4:03/07/2016 4: 40am Creatinine 1.1 MG/DL 0.8-1.5 03/07/2016 4:03/07/2016 4:40am BUN/Creatinine Ratio 26 RATIO 6-03/07/2016 4:03/07/2016 4:40am Glomerular Filtration Rate Calc 64 03/07/2016 4:03/07/2016 4: 40am Glucose Level 101 MG/DL 75-110 03/07/2016 4:03/07/2016 4:40am Calculated Osmolality 279 MOSM/KG 261-280 03/07/2016 4:03/07/2016 4:40am Calcium Level 9.7 MG/DL 8.4-10.2 03/07/2016 4:03/07/2016 4:40am Total Bilirubin 0.60 MG/DL 0.20-1.30 03/07/2016 4:03/07/2016 4: 40am Alkaline Phosphatase 59 U/L 38-126 03/07/2016 4:03/07/2016 4:40am Total Protein 7.3 G/DL 6.3-8.2 03/07/2016 4:03/07/2016 4:40am Albumin 4.3 G/DL 3.5-5.0 03/07/2016 4:03/07/2016 4:40am Globulin 3.0 G/DL 2.4-3.6 03/07/2016 4:03/07/2016 4:40am Albumin/Globulin Ratio 1.4 RATIO 1.1-2.2 03/07/2016 4:03/07/2016 4 :40am Aspartate Amino Transf (AST/SGOT) 28 U/L 17-59 03/07/2016 4:2015 4:40am Alanine Aminotransferase (ALT/SGPT) 25 U/L 21-72 03/07/2016 4: 4:40am Troponin I < 0.012 ng/ml 0-0.12 03/07/2016 9:48am 03/07/2016 10:14am Troponin values with a difference of 55% increase from orginal troponin value represent a true biological DELTA value. (%increase Calc=Orginal Troponin value, divided by subsequent Troponin value, multiplied by 100) GR-Nup-H-Type Natriuretic Peptide 96 PG/ML 0-175 03/07/2016 4: 2:49pm Rule in cut points: <50 years old=450; 50-75 years old=900; >75 years old=1800; When utilizing ProBNP rule-in cut points, adjustment for impaired renal function is typically not required. Lipase 273 U/L 23-300 03/07/2016 4:03/07/2016 4:38am Magnesium Level 2.4 MG/DL H 1.6-2.3 03/07/2016 4:1503/07/2016 5:12am Thyroid Stimulating Hormone (TSH) 5.36 MIU/L H 0.47-4.68 03/07/2016 4: 1503/07/2016 3:10pm Urine Collection Type CLEANCATCH-MIDSTREAM 03/07/2016 5:052015 5:16am Urine Color YELLOW YELLOW 03/07/2016 5:0503/07/2016 5:16am Urine Turbidity CLOUDY CLEAR 03/07/2016 5:0503/07/2016 5:16am Urine Specific [place] >=1.030 H 1.015-1.025 03/07/2016 5:052015 5:16am Urine pH 6.0 5.0-8.0 03/07/2016 5:0503/07/2016 5:16am Urine Leukocyte Esterase 2+ A NEGATIVE 03/07/2016 5:0503/07/2016 5: 16am Urine Nitrite NEGATIVE NEGATIVE 03/07/2016 5:0503/07/2016 5:16am Urine Protein 1+ A NEGATIVE 03/07/2016 5:0503/07/2016 5:16am Urine Glucose (UA) 1+ A NEGATIVE 03/07/2016 5:0503/07/2016 5:16am Urine Ketones NEGATIVE NEGATIVE 03/07/2016 5:0503/07/2016 5:16am Urine Urobilinogen 0.2 EU/DL NORMAL 03/07/2016 5:0503/07/2016 5: 16am Urine Bilirubin NEGATIVE NEGATIVE 03/07/2016 5:0503/07/2016 5: 16am Urine Blood 2+ A NEGATIVE 03/07/2016 5:0503/07/2016 5:16am Urine WBC 30-50 /HPF H 0-5 03/07/2016 5:0503/07/2016 5:24am Urine RBC 20-30 /HPF H 0-3 03/07/2016 5:0503/07/2016 5:24am Urine Bacteria 2+ H NEGATIVE 03/07/2016 5:0503/07/2016 5:24am Urine Culture Indicated CULT REFLEXED &SETUP 03/07/2016 5:05am 5:24am Glucometer 104 mg/dL 75-110 03/07/2016 10:31am 03/07/2016 10:34am Microbiology Results Procedure Source Organism/Result Collection Date/Time Result Date/Time Result Status Urine Culture Urine, Clean Catch-Midstream CULTURE INITIATED - RESULTS PENDING 03/07/2016 5:24am 03/07/2016 5:25am Preliminary Name: TERELL LOPEZ Unit #: [id number] : [id number] Sex: M Admit Date: 03/07/16 Loc / Svc: SRG Discharge Date: DIAGNOSTIC IMAGING REPORT Report #: [id number] [facility] [place] Indication: ITS.REASON: LLQ PAIN Procedure: CT RENAL W/O CONTRAST: Encounter: Initial Comparison: 07/30/2013 Technique: Axial CT images were performed through the abdomen and pelvis without intravenous contrast. Coronal and sagittal reformatted images were also obtained. Findings: Evaluation limited by lack of intravenous contrast. Lower chest: Bibasilar dependent atelectasis. Stable tiny pulmonary nodules. The visualized heart is normal in size without pericardial effusion. Partially visualized cardiac pacer leads. Thoracic aortic atherosclerotic calcifications. Mitral annular calcifications. Abdomen: The noncontrast liver is homogeneous in attenuation. The gallbladder is distended and appears normal. No biliary ductal dilatation. The noncontrast pancreas is homogeneous in attenuation. The spleen is normal in size and attenuation. The adrenal glands are within normal limits. Nonspecific bilateral perinephric stranding, potentially related to chronic medical renal disease. The noncontrast kidneys appear otherwise grossly normal. The ureters are normal in course and caliber. Aortoiliac atherosclerotic calcifications. Unchanged peripherally calcified splenic arterial aneurysm. The stomach is partially distended and appears grossly normal. Small bowel loops are normal in caliber without evidence of obstruction. Colonic diverticulosis without associated inflammatory changes to suggest acute diverticulitis. The appendix is normal. No intra-abdominal free air, free fluid, focal fluid collections, or lymphadenopathy. Pelvis: The bladder is distended and appears normal. Prostatomegaly with nonspecific central calcifications which impresses upon the inferior bladder. The seminal vesicles appear grossly normal. No pelvic free fluid or lymphadenopathy. Osseous structures and soft tissues: No acute osseous abnormality identified. Degenerative spondylosis of the visualized spine. Impression: 1. No acute abdominopelvic process identified by noncontrast CT. 2. Aortoiliac atherosclerotic disease with unchanged peripherally calcified splenic arterial aneurysm. 3. Colonic diverticulosis without imaging evidence of acute diverticulitis. 4. Prostatomegaly impressing upon the inferior bladder. The above report concurs with the preliminary report provided by [facility] [employer] at 4:43 AM. . Procedures Procedure Status Date Provider(s) INSRT HEART PM ATRIAL & VENT Completed 12/12/15 POWER LEO MD INSERT PACE. DUAL VIJI IN CHEST SUBCU/FASCIA, OPEN Completed 12/12/15 POWER LEO MD INSERTION OF PACEMAKER LEAD INTO R VENTRICLE, PERC APPROACH Completed POWER LEO MD INSERTION OF PACEMAKER LEAD INTO RIGHT ATRIUM, PERC APPROACH Completed POWER LEO MD Encounters Encounter Location Arrival/Admit Date Discharge/Depart Date Attending Provider Discharged Inpatient (obs) [facility] 03/07/16 5:05am 03/07/16 3: 07pm POWER LEO MD Discharged Inpatient [facility] 12/12/15 12:55pm 12/13/15 11: 20am POWER LEO MD
--- OUTSIDE RECORDS SUMMARY | 2016-12-17 10:05 | XMS REPORT | Summary of Care ---
Author Author Aydin Ly M.D. Organization Unknown Address [address] [place] [address] [place] [address] Phone Unavailable Care Team Providers Care Life Skills Instructor Name Role Phone Aydin Ly M.D. 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 * Refills: 0 Aydin Ly M.D. * Start 31-Jul-2016 Active Allergies and Adverse Reactions Name Dates [...] hematuria (V13.09, Z87.448) Status: Resolved History of Hematuria, gross (599.71, R31.0) Status: Resolved History of hyperlipidemia (V12.29, Z86.39) Status: Resolved History of hypertension (V12.59, Z86.79) Status: Resolved History of pericarditis (V12.59, Z86.79) Status: Resolved 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, 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 Procedures Procedure Dates Details History of Transureth Resect Prostate (TURP) Complete, Incl Control Of Postop Bleeding History of Pacemaker Placement History of Colonoscopy Procedures not documented Immunization Name Dates Details Immunizations not documented [...] smoker Vital Signs Date Test Result Details 31-Jul-2016 10:43 BP Systolic 139 mm[Hg] Status: Comments: Location: ; Position: BP Diastolic 73 mm[Hg] Status: Comments: Location: ; Position: Heart Rate 73 /min Status: Comments: Location: ; Physical Findings 16 Status: Comments: Respiration Results Date Description Value Details Results not documented Plan of Care Name Dates Details Planned Observations Planned Goals not documented Planned Encounters Appointment; Provider: Aydin Ly M.D. On 10:00 Instructions Name Dates Details Instructions not documented Encounters Appointment; Aydin Ly M.D. Encounter Diagnosis: Problem not documented On 21-Jun-2016 09:15 Appointment; Aydin Ly M.D. Encounter Diagnosis: Problem [...]
--- OUTSIDE RECORDS SUMMARY | 2016-12-17 10:06 | XMS REPORT | Summary of Care ---
Author Author Aydin Ly M.D. Unknown Address [address] [place] [address] [place] [address] Phone Unavailable Care Team Providers Care Plug Wirer Name Role Phone Yudi Chou Unavailable Unavailable Unavailable Unavailable Functional [...] m2 Status: Results Date Description Value Details 25-Jun-2016 10:11 URINE CULTURE [id number] Comments: [facility] performed at: [facility] [place] [address] [address] [facility] [place], [address], Assistant Warehouse Manager: Aydin Suresh D.O., MPHQuest Collection Date/Time: [id number] Results Received Date/Time: [id number] Reported Date/Time: [id number] FASTING:NOQuest performed at: [facility] [place], [address] [place], [address], Assistant Warehouse Manager: Aydin Suresh D.O., MPHQuest Collection Date/Time: [id number] Results Received Date/Time: [id number] Reported Date/Time: [id number] FASTING:NO CULTURE, URINE, ROUTINE SEE NOTE (Abnormal) Comments: CULTURE, URINE, ROUTINE MICRO NUMBER: [id number] TEST STATUS: FINAL SPECIMEN SOURCE : URINE, CLEAN CATCH SPECIMEN QUALITY: ADEQUATE RESULT: Greater than 100,000 CFU/mL of Staphylococcus epidermidis COMMENT: Additional organism(s) less than 10,000 CFU/mL isolated. These organisms, commonly found on external and internal genitalia, are considered colonizers. No further testing performed. S.epidermidis ----- INT COURTNEY CIPROFLOXACIN R & gt;=8 GENTAMICIN S <=0.5 LEVOFLOXACIN R 4 MOXIFLOXACIN I 1 NITROFURANTOIN S <=16 OXACILLIN S <=0.25 1 TETRACYCLINE S 2 TRIMETHOPRIM/ SULFA R 80 VANCOMYCIN S <=0.5S=Susceptible I= Intermediate R=Resistant *=Not TestedNR=Not Reported NN=See Therapy CommentsTHERAPY COMMENTS Note 1: Oxacillin-susceptible staphylococci are susceptible to other penicillinase-stable penicillins (e.g. Methicillin, Nafcillin), beta- lactam/beta-lactamase inhibitor combinations, and cephems with staphylococcal indications, including Cefazolin.[KS]----- Plan of Care Name Dates Details Planned Observations Planned Goals not documented Planned Encounters Appointment; Provider: Aydin Ly M.D. On 19-Jul-2016 08:30 Instructions Name Dates Details Instructions not documented [...]
--- NOTE | 2016-12-17 10:14 | NUR ---
BLADDER SCAN COMPLETED. THEN PT SAYS HE JUST "PASSED A BIG CLOT". PT DID PASS 2 CLOTS-DRK RED. THEN PT VOIDED 250 CC DRK RED URINE.
--- NOTE | 2016-12-17 10:16 | ERPDOC ---
Departure Impression Impression Referrals: MAURISIO EVERETT MD (Family) HPI - Male General Chief Complaint: Male Urogenital Problems Stated Complaint: URINE RETENTION Time Seen by Provider: 10:15 HPI - Male Allergies: Coded Allergies: metoprolol (Verified Allergy, Severe, life threatening, 12/17/16) Zyqcdij-Ojb-Zzx Reductase Inhibitor (Verified Allergy, Unknown, SEVERE MYALGIA, 12/17/16) erythromycin base (Verified Allergy, Unknown, N/V, 12/17/16) losartan potassium (Verified Allergy, Unknown, ARTHRALGIA, WEAKNESS, FATIGUE, 12/17/16) tamsulosin (Verified Adverse Reaction, Unknown, SYNCOPE, 12/17/16) Past History Past Medical History Metabolic: diabetes, hypercholesterolemia, hypertension, other Cardiac: A-fib, CAD, echocardiogram, other Hx Echocardiogram: No Male: BPH, prostatitis, renal failure Hematologic: other Surgical History General: colonoscopy Cardiac: pacemaker Reproductive/: TURP Family History Family PMH: FOUND: CAD, MS, diabetes, hypercholesterolemia, hypertension Vaccines Hx Influenza Vaccination: Yes (May 2015) Hx Pneumococcal Vaccination: No Social History Does patient use chewing tobac: No Sexuality: female partner Physical Exam General Vitals and Pain Weight: Kilograms: Height (feet): 5 Height (inches): 11.00 Triage Pain Scale: Progress Results/Orders Orders Procedure Category Date Status Time Funez (Ed) EDM 12/17/16 Transmitted 10:15 Catheter Needs JOHANA 12/17/16 In Process Assessment 10:15 Bladder Scanner (Ed) EDM 12/17/16 Transmitted 10:15 UA, LAB 12/17/16 In Process Dip&Micro(Complete) & 11:51 Lab Results Laboratory Tests Test 12/17/16 11:51 Urine Collection Type Cleancatch-midstream Urine Color Yellow Urine Turbidity Clear Urine pH 5.0 Urine Specific [place] 1.010 Urine Protein Negative Urine Glucose (UA) Negative Urine Ketones Negative Urine Blood 3+ Urine Nitrite Negative Urine Bilirubin Negative Urine Urobilinogen 0.2EU/DL Urine Leukocyte Esterase Negative Urine RBC Pending Urine WBC Pending Urine Bacteria Pending Consult/PCP Consult/PCP : Physician Contacted: Dr. Ly Time Called: 10:16 Type of discussion: Phone Consult/PCP NAVNEET DOHERTY DO December 17, 2016 10:16
--- NOTE | 2016-12-17 10:20 | NUR ---
BLADDER SCAN REPEATED. INDICATES 562 ML URINE.
--- NOTE | 2016-12-17 10:35 | NUR ---
OUTPUT PT VOIDED ADDITIONAL 300 CC URINE
--- NOTE | 2016-12-17 11:30 | NUR ---
STATUS UPON ENTERING ROOM, PT STATES "I THINK I'VE GOT A BIG OLD CLOT IN THERE. IT DOESN'T FEEL LIKE IT'S DRAINING, AND I'M REALLY HURTING." PT BLADDER SCANNED WITH RESULT OF [id number]. PROVIDER NOTIFIED.
[2016-12-17] MEDS ORDERED: MEMA28CA PO (12:18)
[2016-12-17] MEDS ORDERED: DILT120C47 PO (12:18)
[2016-12-17] MEDS ORDERED: SULF1TAB3 PO (12:18)
[2016-12-17] MEDS ORDERED: HYDR-2540 PO (12:18)
--- NOTE | 2016-12-17 12:24 | NUR ---
DR. DONALDSON AT BEDSIDE.
[2016-12-17 12:27] LABS: BLOOD, URINE 3+ (NEGATIVE); COLOR,URINE YELLOW (YELLOW); LEUKOCYTE ESTERASE ,URINE NEGATIVE (NEGATIVE); NITRITE,URINE NEGATIVE (NEGATIVE); UROBILINOGEN,URINE 0.2 EU/DL (NORMAL)
[2016-12-17 12:35] LABS: BACTERIA,URINE NONE SEEN (NEGATIVE); SQUAMOUS EPITHELIAL CELL,UR 0-5
--- NOTE | 2016-12-17 12:47 | ERPDOC ---
Departure Disposition Decision Date: December 17, 2016 Disposition Decision Time: 13:57 (CONSUELO MOORE APRN) Disposition: 01 DISCHARGED HOME, SELF-CARE Impression Impression (CONSUELO MOORE APRN) Impression: Primary Impression: Congestion or hemorrhage of prostate Severity: Moderate (CONSUELO MOORE APRN) Condition: Improved Seen By: Mid-level only (CONSUELO MOORE APRN) Referrals: MAURISIO EVERETT MD (Family) RAYSA LY MD Patient Instructions: Benign Prostatic Hypertrophy (ED) Problems/Meds/Labs Reviewed?: Yes Medications reviewed and manag: Yes (CONSUELO MOORE APRN) Additional Instructions: You may remove catheter in the morning (follow instruction from nurse). Follow with Dr. Ly in office tomorrow as scheduled. Follow up care ordered?: Yes Mental Status: Alert, Oriented (CONSUELO MOORE APRN) HPI - Male General Chief Complaint: Male Urogenital Problems Stated Complaint: URINE RETENTION Source: patient (CONSUELO MOORE APRN) Time Seen by Provider: 10:15 (DECEMBER,NAVNEET M DO) HPI - Male Initial Comments 85 YO M presents to ED with difficulty urinating and passing blood clots in his urine. Patient was seen yesterday by his PCP and started on antibiotic for UTI. Patient reports that he was "dripping" small amount of bloody urine throughout the night. Patient presented to ED with distend bladder and urinary retention. Patient says that he has had similar episodes of "this" in the past. Dr. Ly did laser procedure to help with bleeding int he past. Pain Scale: Now: 0/10, Worst: 10/10 Location: suprapubic Associated Symptoms: abdominal pain, DENIES: lower back pain, nausea/vomiting ( CONSUELO MOORE APRN) Allergies: Coded Allergies: metoprolol (Verified Allergy, Severe, life threatening, 12/17/16) Txtoowg-Azb-Uur Reductase Inhibitor (Verified Allergy, Unknown, SEVERE MYALGIA, 12/17/16) erythromycin base (Verified Allergy, Unknown, N/V, 12/17/16) losartan potassium (Verified Allergy, Unknown, ARTHRALGIA, WEAKNESS, FATIGUE, 12/17/16) tamsulosin (Verified Adverse Reaction, Unknown, SYNCOPE, 12/17/16) Past History Past Medical History Metabolic: diabetes, hypercholesterolemia, hypertension Cardiac: A-fib, CAD, echocardiogram, other Hx Echocardiogram: No Respiratory: DENIES: asthma Male: BPH, prostatitis, renal failure Neurological: DENIES: seizures Musculoskeletal: DENIES: rheumatoid arthritis Hematologic: other Psychological: DENIES: depression (CONSUELO MOORE HEAD [employer] MEASUREMENT [employer] INSIGHTS) Surgical History General: colonoscopy Cardiac: pacemaker Reproductive/: TURP (CONSUELO MOORE HEAD OF MEASUREMENT [employer] INSIGHTS) Family History Family PMH: FOUND: CAD, DC, diabetes, hypercholesterolemia, hypertension ( CONSUELO MOORE [employer] MEASUREMENT [employer] INSIGHTS) Vaccines Hx Influenza Vaccination: Yes (May 2015) Hx Pneumococcal Vaccination: No (CONSUELO MOORE [employer] MEASUREMENT [employer] INSIGHTS) Social History Does patient use chewing tobac: No Sexuality: female partner (CONSUELO MOORE [employer] OF MEASUREMENT [employer] INSIGHTS) Review of Systems Constitutional Constitutional: DENIES: chills, dizziness, fever, weakness (CONSUELO MOORE [employer] MEASUREMENT [employer] INSIGHTS) Eyes General: DENIES: erythema, exudate Lids/Accessories: DENIES: erythema, swelling (CONSUELO MOORE [employer] MEASUREMENT [employer] INSIGHTS) ENMT Ears: DENIES: pain Sinuses: DENIES: congestion, rhinorrhea Mouth/Throat: DENIES: sore throat (CONSUELO MOORE [employer] MEASUREMENT [employer] INSIGHTS) Cardiovascular Cardiac: DENIES: chest pain, murmur Rhythm/Rate: DENIES: palpitations (CONSUELO MOORE [employer] MEASUREMENT [employer] INSIGHTS) Pulmonary Respiratory: DENIES: cough, dyspnea (CONSUELO MOORE [employer] MEASUREMENT [employer] INSIGHTS) GI Upper Abdomen: DENIES: nausea, pain, vomiting Lower Abdomen: DENIES: diarrhea, pain (CONSUELO MOORE A [employer] MEASUREMENT [employer] INSIGHTS) General: DENIES: pain Male: dribbling (with blood clots) (CONSUELO MOORE [employer] MEASUREMENT [employer] INSIGHTS) Musculoskeletal General: DENIES: joint pain, pain, tenderness (COSNUELO MOORE [employer] MEASUREMENT [employer] INSIGHTS) Integumentary Skin: DENIES: color change, itching, rash (CONSUELO MOORE [employer] MEASUREMENT [employer] INSIGHTS) Neurological General: DENIES: ataxia, change in strength, numbness, paralysis/paresis, weakness (CONSUELO MOORE [employer] MEASUREMENT [employer] INSIGHTS) Psychiatric Psychiatric: DENIES: anxiety, depression, nervousness (GEORGE MOORES Kalyani HEAD OF MEASUREMENT & INSIGHTS) Physical Exam General General Nourishment: well nourished, well developed, no acute distress, adult (CONSUELO MOORE A [employer]MENT [employer] INSIGHT[employer]) Vitals and Pain First Documented Vital Signs Date Time Temp Pulse Resp B/P Pulse Ox O2 Delivery O2 Flow Rate FiO2 12/17/16 10:02 98.3 82 16 178/81 96 Room Air () Vitals and Pain Weight: Kilograms: Height (feet): 5 Height (inches): 11.00 Triage Pain Scale: (CONSUELO MOORE APRN) Eyes (brief) Eyes Brief: found: EOMI (CONSUELO MOORE [employer] MEASUREMENT [employer] INSIGHTS) ENMT (brief) ENMT Brief: NOT FOUND: nasal exudate, nasal swelling (GEORGE MOORES A [employer] MEASUREMENT [employer] INSIGHTS) Neck (brief) Neck: FOUND: trachea midline (GEORGE MOORES A [employer] OF MEASUREMENT [employer] INSIGHTS) Respiratory (brief) Respiratory: FOUND: clear all [place], equal bilaterally, symmetrical (GEORGE MOORES A [employer] MEASUREMENT [employer] INSIGHTS) Cardiovascular (brief) Cardiac: FOUND: regular rate, regular rhythm (GEORGE MOORES Kalyani HEAD OF MEASUREMENT & INSIGHTS) Abdomen (brief) Abdominal Brief: FOUND: bowel normo active x4, soft, NOT FOUND: distended, tender Comments I examined patient after Dr. Ly had inserted 20 fr. catheter. (CONSUELO MOORE HEAD OF MEASUREMENT & INSIGHTS) Integumentary (brief) Integumentary Brief: FOUND: dry, pink, warm (GEORGE MOORES Kalyani HEAD OF MEASUREMENT & INSIGHTS) Neurologic (brief) Neurological Brief: FOUND: motor-no gross deficits, sensory-no gross deficits ( GEORGE MOORES A [employer] MEASUREMENT [employer] INSIGHTS) Psychiatric (brief) Psychiatric Brief: FOUND: alert, normal affect, oriented (GEORGE MOORES Kalyani HEAD OF MEASUREMENT & INSIGHTS ) Differential Diagnoses Considering: Ureteral Stone, Urethritis, Urinary Retention, UTI, Other (BPH) (CONSUELO MOORE HEAD OF MEASUREMENT & INSIGHTS) Progress Results/Orders Orders Procedure Category Date Status Time Torres (Ed) EDM 12/17/16 Transmitted 10:15 Catheter Needs JOHANA 12/17/16 Complete Assessment 10:15 Bladder Scanner (Ed) EDM 12/17/16 Transmitted 10:15 UA, LAB 12/17/16 Complete Dip&Micro(Complete) & 11:51 Lidocaine Urojet PHA 12/17/16 Complete (Urojet) 15:15 ([facility] [place] DO) Lab Results Laboratory Tests Test 12/17/16 11:51 12/19/16 11:45 Urine Collection Type Cleancatch-midstream Urine Color Yellow Urine Turbidity Clear Urine pH 5.0 Urine Specific [place] 1.010 Urine Protein Negative Urine Glucose (UA) Negative Urine Ketones Negative Urine Blood 3+ Urine Nitrite Negative Urine Bilirubin Negative Urine Urobilinogen 0.2EU/DL Urine Leukocyte Esterase Negative Urine RBC 5-10/HPF Urine WBC 1-3/HPF Urine Squamous Epithelial Cells 0-5 Urine Bacteria None seen Urine Culture Indicated Cult not indicated Lab Scanned Report LAB RESULTS - [id number] () Medications Current ED Medications Lidocaine HCl (Urojet) 20 ml O ONCE MM Last administered on 12/17/16 12:28; Start 12/17/16 at 15:15; Stop 12/17/16 at 15:15; Status DC () Progress Progress Bladder scanner indicates over 500ml of urine in bladder. Nurse put in 14 fr. catheter and patient had over 500ml out. However patient had no relief. Bladder scanner was repeated and it indicated patient had over 800mls in bladder. Dr. Ly was consulted by Dr. Estrada. Dr. Ly place a 20 fr. catheter with assistance of a guide wire. Patient reports marked improvement of pain after placement of 20fr. catheter. VS improved Patient is instructed by Dr. Ly to remove catheter tomorrow at home. Instruction given to patient on catheter removal. Patient is discharge improved and verbalized understanding of treatment plan, follow with Dr. Ly and return precautions. (CONSUELO MOORE APRN) Consult/PCP Consult/PCP : Physician Contacted: Dr. Ly Type of discussion: Phone Consult/PCP Discussion Details Consulted Dr. Ly initially to ensure appropriateness of care - agreed with torres placement and d/c with leg bag and f/u with Dr. Ly as outpt. After initial placement of torres by NRS, torres stopped draining; unable to irrigate effectively. Dr. Ly was again contacted for aid in managing pt. () CONSUELO MOORE APRN December 17, 2016 12:47 [facility] [place] December 17, 2016 14:23
--- NOTE | 2016-12-17 13:05 | NUR ---
STATUS PT APPEARS TO BE RESTING COMFORTABLY IN CART. DENIES NEEDS AT THIS TIME. CONTINUES TO DENY PAIN. MISHRA DRAINING. CALL LIGHT WITHIN REACH, WILL CONTINUE TO MONITOR.
[2016-12-17 14:27] VITALS: BP 129/61; PULSE 82; RESP 16; TEMP 98.3; O2SAT 94
--- NOTE | 2016-12-17 14:27 | NUR ---
DISCHARGE WRITTEN INSTRUCTIONS REVIEWED WITH PT. PT ABLE TO ILLUSTRATE HOW TO DEFLATE MISHRA BALLOON PRIOR TO REMOVAL IN AM, DR. DONALDSON REQUESTS. PT VERBALIZES UNDERSTANDING OF DI, DENIES QUESTIONS. CONTINUES TO DENY PAIN ON DISMISSAL. PT AMBULATES OUT OF ER WITH STEADY GAIT AT THIS TIME.
[2016-12-17] MEDS ORDERED: LIDOCAINE JELLY 2% 20ml UROJET MM ONE (15:15)
--- NOTE | 2016-12-17 18:16 | CONSF ---
DATE OF CONSULTATION December 17, 2016 REASON FOR CONSULTATION Gross hematuria, difficult urethral catheterization, urinary retention. HISTORY Mr. Huang is an 85-year-old man who presented to the emergency room in profound discomfort from urinary retention. For the past day he has been urinating in small volume and grossly bloody urine. He was seen by his PCP yesterday and was given antibiotic for suspected urinary tract infection. This morning, he is not able to urinate at all. In the emergency room a bladder scan showed urinary retention with more than 500 cc in the bladder. A catheter was inserted and grossly bloody urine returned. The catheter did not drain very well and subsequent bladder scan showed over 800 cc retention and the patient was profoundly uncomfortable. I had seen this patient in the past for similar problems with intermittent gross hematuria due to very congested and friable prostate that causes intermittent bleeding and clot retention. He had undergone GreenLight laser to coagulate the vessels on the prostate and the bladder neck in the past. He has done much better following the procedure but he presents today with similar problems. When I saw him he was in acute distress with indwelling Funez catheter, a 16-Fr silicone catheter, that was draining reasonably clear urine. It appeared that what we were seeing in the tubing was irrigation solution rather than true urine. Too much catheter was showing, suggesting that the catheter was in fact not all the way in the bladder. Attempt to advance the catheter was met with resistance. Therefore, the existing 16-Fr catheter was removed. The urethra was anesthetized with 2% lidocaine jelly and a 20-Fr catheter was inserted with the aid of catheter stylet. There was restriction in the posterior urethra and possibly in the prostate. We were able to insert the catheter with the catheter guide and immediately grossly bloody laura-color urine returned. The bladder was emptied out and irrigated by hand but the urine was not completely cleared. A small amount of blood clot did return on catheterization. We left the catheter in for approximately 90 minutes and reexamination at the time showed clear urine being drained. The patient was recommended to be discharged with a Funez catheter. The Funez catheter is to be removed in the morning. Return for followup if there is any difficulty urinating. SEAN
== END 2016-12-17 14:27 | disposition home or self-care (01) ==
LOC: ED 09:59
DX: R33.9 Retention of urine, unspecified (principal); R31.0 Gross hematuria
CPT/HCPCS: 51702; 81001